=== PATIENT | female | born 1970 | race Caucasian/White ===

== ENCOUNTER 2019-11-09 13:25 | Outpatient (CLI) | payer MEDICARE, MEDICAID, SELFPAY | END 2019-11-09 13:26 | disposition home or self-care (01) | PROVIDERS: Family Provider Family Medicine; Visit Provider Internal Medicine Critical Care Medicine | DX: J44.1 Chronic obstructive pulmonary disease with (acute) exacerbation (principal); F17.210 Nicotine dependence, cigarettes, uncomplicated | CPT/HCPCS: 94010; 94726; 94729 ==

== ENCOUNTER 2019-12-17 10:57 | Outpatient (CLI) | payer MEDICARE, MEDICAID, SELFPAY ==
[2019-12-17 11:28] LABS: Basophils # 0.1 10^3/uL (0.0-0.1); Basophils % 0.7 %; Eosinophils # 0.2 10^3/uL (0.0-0.8); Eosinophils % 2.7 %; Hematocrit 51.4 % (37.0-47.0); Hemoglobin 17.4 g/dL (11.5-15.3); Lymphocytes # 2.4 10^3/uL (0.8-4.8); Lymphocytes % 28.9 %; Mean Corpuscular HGB Conc 33.9 g/dL (30.0-36.0); Mean Corpuscular Hemoglobin 36.2 pg (28.0-34.0); Mean Corpuscular Volume 106.9 fL (81-99); Mean Platelet Volume 10.2 fL (7.4-10.4); Monocytes # 0.7 10^3/uL (0.2-0.9); Neutrophils # 4.8 10^3/uL (1.8-7.7); Neutrophils % 58.5 %; Nucleated Red Blood Cells % 0 %; Platelet Count 318 10^3/cmm (130-400); Red Blood Count 4.81 10^6/uL (4.1-5.3); Red Cell Distribution Width 12.4 % (12.1-15.1); White Blood Count 8.2 10^3/uL (4.0-10.0)
[2019-12-17 11:46] LABS: Ferritin 134 ng/mL (15-150); Iron 114 ug/dL (37-145); Total Iron Binding Capacity 285 mcg/dl; Unsaturated Iron Binding 171 ug/dL (112-347)
== END 2019-12-17 10:58 | disposition home or self-care (01) ==
LOC: ONCMED 11:01
PROVIDERS: Family Provider Family Medicine; PCP Family Medicine; Visit Provider Internal Medicine Medical Oncology
DX: E83.110 Hereditary hemochromatosis (principal)
CPT/HCPCS: 82728; 83540; 83550; 85025; 99195; 99211

== ENCOUNTER 2020-03-19 10:45 | Outpatient (CLI) | payer MEDICARE, MEDICAID, SELFPAY ==
[2020-03-19 11:17] LABS: Basophils # 0.1 10^3/uL (0.0-0.1); Basophils % 1.1 %; Eosinophils # 0.3 10^3/uL (0.0-0.8); Eosinophils % 3.5 %; Hematocrit 49.6 % (37.0-47.0); Hemoglobin 16.9 g/dL (11.5-15.3); Lymphocytes % 27.8 %; Mean Corpuscular HGB Conc 34.1 g/dL (30.0-36.0); Mean Corpuscular Hemoglobin 36.4 pg (28.0-34.0); Mean Corpuscular Volume 106.9 fL (81-99); Mean Platelet Volume 9.8 fL (7.4-10.4); Monocytes # 0.5 10^3/uL (0.2-0.9); Monocytes % 7.5 %; Neutrophils # 4.3 10^3/uL (1.8-7.7); Neutrophils % 59.8 %; Nucleated Red Blood Cells % 0 %; Platelet Count 267 10^3/cmm (130-400); Red Blood Count 4.64 10^6/uL (4.1-5.3); Red Cell Distribution Width 12.9 % (12.1-15.1); White Blood Count 7.2 10^3/uL (4.0-10.0)
[2020-03-19 11:36] LABS: Alanine Aminotransferase 37 U/L (0-33); Albumin Level 3.7 g/dL (3.5-5.2); Alkaline Phosphatase 68 IU/L (35-105); Aspartate Amino Transferase 37 U/L (0-32); Blood Urea Nitrogen 12 mg/dL (6-20); Calcium 9.7 mg/dL (8.5-10.5); Carbon Dioxide 23 mmol/L (22-29); Chloride 104 mmol/L (98-107); Ferritin 110 ng/mL (15-150); Globulin 3.4 g/dL (1.3-4.6); Glomerular Filtration Rate 59.4 mL/min (90-130); Glucose 137 mg/dL (65-115); Iron 63 ug/dL (37-145); Osmolality Calculated 284 mOsm/kg (285-295); Percent Saturation 24.4 % (20-50); Sodium 138 mmol/L (136-145); Total Bilirubin 0.2 mg/dL (0.15-1.2); Total Iron Binding Capacity 258 mcg/dl; Total Protein 7.1 g/dL (6.6-8.7); Unsaturated Iron Binding 195 ug/dL (112-347)
== END 2020-03-19 10:46 | disposition home or self-care (01) ==
LOC: ONCMED 10:48
PROVIDERS: PCP Family Medicine; Visit Provider Internal Medicine Medical Oncology
DX: E83.110 Hereditary hemochromatosis (principal); I10 Essential (primary) hypertension
CPT/HCPCS: 80053; 82728; 83540; 83550; 85025; 99195

== ENCOUNTER 2020-05-21 09:33 | Outpatient (CLI) | payer MEDICARE, MEDICAID, SELFPAY ==
[2020-05-21 10:11] LABS: Basophils # 0.1 10^3/uL (0.0-0.1); Basophils % 0.8 %; Eosinophils # 0.3 10^3/uL (0.0-0.8); Eosinophils % 3.2 %; Hematocrit 51.3 % (37.0-47.0); Hemoglobin 17.3 g/dL (11.5-15.3); Lymphocytes # 2.3 10^3/uL (0.8-4.8); Lymphocytes % 27.2 %; Mean Corpuscular HGB Conc 33.7 g/dL (30.0-36.0); Mean Corpuscular Hemoglobin 35.5 pg (28.0-34.0); Mean Corpuscular Volume 105.1 fL (81-99); Mean Platelet Volume 10.2 fL (7.4-10.4); Monocytes # 0.6 10^3/uL (0.2-0.9); Neutrophils # 5.08 10^3/uL (1.8-7.7); Neutrophils % 61.2 %; Nucleated Red Blood Cells % 0 %; Platelet Count 293 10^3/cmm (130-400); Red Blood Count 4.88 10^6/uL (4.1-5.3); Red Cell Distribution Width 12.5 % (12.1-15.1); White Blood Count 8.3 10^3/uL (4.0-10.0)
== END 2020-05-21 09:34 | disposition home or self-care (01) ==
LOC: ONCMED 09:39
PROVIDERS: PCP Family Medicine; Visit Provider Nurse Practitioner
DX: E83.110 Hereditary hemochromatosis (principal)
CPT/HCPCS: 36415; 85025; 99195

== ENCOUNTER 2020-06-19 10:45 | Outpatient (CLI) | payer MEDICARE, MEDICAID, SELFPAY ==
[2020-06-19 12:26] LABS: Basophils # 0.1 10^3/uL (0.0-0.1); Basophils % 0.9 %; Eosinophils # 0.3 10^3/uL (0.0-0.8); Eosinophils % 3.1 %; Hematocrit 50.1 % (37.0-47.0); Hemoglobin 16.7 g/dL (11.5-15.3); Lymphocytes # 2.4 10^3/uL (0.8-4.8); Lymphocytes % 27.2 %; Mean Corpuscular HGB Conc 33.3 g/dL (30.0-36.0); Mean Corpuscular Hemoglobin 35.4 pg (28.0-34.0); Mean Corpuscular Volume 106.1 fL (81-99); Mean Platelet Volume 11.2 fL (7.4-10.4); Monocytes # 0.7 10^3/uL (0.2-0.9); Monocytes % 7.6 %; Neutrophils # 5.35 10^3/uL (1.8-7.7); Nucleated Red Blood Cells % 0 %; Platelet Count 256 10^3/cmm (130-400); Red Blood Count 4.72 10^6/uL (4.1-5.3); Red Cell Distribution Width 12.8 % (12.1-15.1); White Blood Count 8.8 10^3/uL (4.0-10.0)
[2020-06-19 13:06] LABS: Ferritin 138 ng/mL (15-150); Iron 99 ug/dL (37-145); Percent Saturation 38.5 % (20-50); Total Iron Binding Capacity 257 mcg/dl; Unsaturated Iron Binding 158 ug/dL (112-347)
== END 2020-06-19 10:46 | disposition home or self-care (01) ==
LOC: ONCMED 10:50
PROVIDERS: PCP Family Medicine; Visit Provider Internal Medicine Medical Oncology
DX: E83.110 Hereditary hemochromatosis (principal); I10 Essential (primary) hypertension
CPT/HCPCS: 82728; 83540; 83550; 85025; 99195

== ENCOUNTER 2020-09-22 11:49 | Outpatient (CLI) | payer MEDICARE, MEDICAID, SELFPAY ==
[2020-09-22 12:18] LABS: Basophils # 0.1 10^3/uL (0.0-0.1); Basophils % 0.8 %; Eosinophils # 0.3 10^3/uL (0.0-0.8); Eosinophils % 2.9 %; Hematocrit 51.4 % (37.0-47.0); Hemoglobin 17.1 g/dL (11.5-15.3); Lymphocytes # 2.5 10^3/uL (0.8-4.8); Lymphocytes % 28.2 %; Mean Corpuscular HGB Conc 33.3 g/dL (30.0-36.0); Mean Corpuscular Hemoglobin 34.8 pg (28.0-34.0); Mean Corpuscular Volume 104.7 fL (81-99); Monocytes # 0.7 10^3/uL (0.2-0.9); Monocytes % 8.1 %; Neutrophils # 5.19 10^3/uL (1.8-7.7); Neutrophils % 59.8 %; Nucleated Red Blood Cells % 0 %; Platelet Count 307 10^3/cmm (130-400); Red Blood Count 4.91 10^6/uL (4.1-5.3); Red Cell Distribution Width 13.2 % (12.1-15.1); White Blood Count 8.7 10^3/uL (4.0-10.0)
[2020-09-22 12:42] LABS: Alanine Aminotransferase 52 U/L (0-33); Albumin Level 3.8 g/dL (3.5-5.2); Alkaline Phosphatase 70 IU/L (35-105); Anion Gap 14.7 (5-19); Aspartate Amino Transferase 51 U/L (0-32); Blood Urea Nitrogen 12 mg/dL (6-20); Calcium 9.5 mg/dL (8.5-10.5); Carbon Dioxide 25 mmol/L (22-29); Chloride 102 mmol/L (98-107); Ferritin 103 ng/mL (15-150); Globulin 3.6 g/dL (1.3-4.6); Glomerular Filtration Rate 67.1 mL/min (90-130); Glucose 116 mg/dL (65-115); Iron 55 ug/dL (37-145); Osmolality Calculated 287 mOsm/kg (285-295); Potassium 3.7 mmol/L (3.5-5.1); Sodium 138 mmol/L (136-145); Total Bilirubin 0.2 mg/dL (0.15-1.2); Total Iron Binding Capacity 288 mcg/dl; Total Protein 7.4 g/dL (6.6-8.7); Unsaturated Iron Binding 233 ug/dL (112-347)
--- NOTE | 2020-09-26 12:01 | ONC FU_ITS ---
Dr. Lance Patient Follow-Up Note Patient: Camilla Nicole Unit #: [id number]: 1970 Dicatated By: Lokesh Lance M.D.Date of Visit:Sep 22, 2020 Onc Med Follow-up/Prog Note Chief Complaint: Hemochromatosis. History of Present Illness: This is a 49 year-old woman with hereditary hemochromatosis. The hemochromatosis was initially diagnosed in April 2007. Her serum ferritin was just mildly elevated at 272 ng/mL, but her serum iron studies did show an elevated transferrin saturation at 63%. The HFE gene analysis showed compound heterozygosity for the C282Y mutation and the H63D mutation. At that time, she also had mildly elevated hemoglobin/hematocrit levels and macrocytic red cell indices. Her B12 level was normal. I had seen her initially in October 2007 and at that time she was started on a phlebotomy program. Her ferritin level and transferrin saturation had stabilized in the low normal range with phlebotomies every 2 to 3 months.. Her medical history is otherwise significant for hypertension and hypercholesterolemia. She has had chronic fatigue and chronic pain which was felt to be consistent with fibromyalgia and osteoarthritis. She is disabled as result of a previous injury to the right knee. She also has a history of migraine headaches. INTERIM HISTORY: Following her visit in August 2016 she was placed on a more frequent phlebotomy schedule, up to monthly, but I think it was mainly due to her elevated hemoglobin/hematocrit levels. She has, though, been previously evaluated with JAK2 gene mutation studies, which were negative. As such, I had not been using her hemoglobin/hematocrit levels as criteria for phlebotomies, and following her visit in August 2018 I decreased the frequency of her phlebotomies to every 4 months. As of her follow-up visit in August 2019 her transferrin saturation and ferritin levels had increased slightly, and the frequency of her phlebotomies was increased to every 3 months. She is seen for a scheduled visit. She has been feeling more tired lately, that she attributes to stress issues. She is still doing light work. ECOG score is 1. Appetite is been okay. Her weight is stable. She does not have fever. She does have some hot flashes and sweating. She has normal cough . She is still smoking 1/2 pack of cigarettes daily. She says her breathing is pretty good. She does not complain of chest pain. She has no GI/ complaints other than frequent urination. She has normal joint issues . She has migraine headaches. She has no focal neurologic symptoms. Medications: Albuterol Sulfate 1 (1.25 mg/3ml) Nebulization solution Inhalation b.i.d. PRN, Aspirin 1 (81 mg) Tablet Oral daily, Atrovent HFA 1 (17 mcg/act) Aerosol, solution Inhalation b.i.d. PRN, hydroCHLOROthiazide 1 Tablet (of 25 mg) Oral daily, Ibuprofen 1 (800 mg) Tablet Oral PRN, Lisinopril 1 Tablet (of 5 mg) Oral daily, Symbicort (160-4.5 mcg/act) Aerosol Inhalation daily, Vicoprofen 1 Tablet (of 7.5-200 mg) Oral PRN, Xanax 1 Tablet (of 1 mg) Oral daily PRN Allergies: adhesive, Codeine Sulfate, Penicillins, and Percocet. Review of Systems: Constitutional - She has been feeling tired, but much of that she attributes to stress factors. She is doing light work. Her appetite is okay. Her weight is stable. She has not had fever. She does have hot flashes and sweating. ECOG score is 1, ENMT - She has year-round sinus drainage. No mouth sores. No sore throat or difficulty swallowing, Hematologic/Lymphatic - No abnormal bruising or bleeding, Respiratory - No shortness of breath. She has normal cough. She is still smoking 1/2 pack of cigarettes daily. No pleuritic pain or hemoptysis, Cardiovascular - No angina pain. No palpitations, Gastrointestinal - No nausea or vomiting. No heartburn or acid reflux. No diarrhea or constipation. No blood in the stool or black stools, Genitourinary (F) - No dysuria or hematuria. She has urinary frequency. No urgency or incontinence, Musculoskeletal - She has normal joint issues , Integumentary - No skin rash, Neurologic - She has migraine headaches. No dizziness. No numbness or tingling. No other focal neurologic symptoms, Psychiatric - She has anxiety. No depression. She has insomnia. Vital Signs: Performed on Sep 22, 2020 13:29 Height - 70.00 in Weight - 374.2 lbs BSA - 2.72 sq.m BMI - 53.69 (HIGH) Temperature - 97.5 F (LOW) Pulse - 82 /min Respiration - 18 /min BP - 164/82 mm(hg) (HIGH) O2 Sat - 96 % Pain - 0 Physical Examination: Constitutional - She looks pretty good generally, Eyes - Sclerae nonicteric. Conjunctivae clear, ENMT - No lesions noted in the oral cavity, Hematologic/Lymphatic - No cervical, clavicular, or axillary adenopathy, Respiratory - Lungs are clear with diminished air movement bilaterally, Cardiovascular - Heart thythm is regular. There is no murmur, gallop, or rub noted, Abdomen - Moderately distended. Liver and spleen are not enlarged. There is no abdominal mass or ascites noted and there is no inguinal adenopathy, Extremities - No edema, Neurologic - No focal neurologic deficits noted. Lab/Imaging: Test performed on Sep 22, 2020 12:01 Ferritin 103 ng/mL Iron 55 mcg/dL Sodium 138 mmol/L Iron Binding Capacity (TIBC) 288 mcg/dl Potassium 3.7 mmol/L % Iron Saturation 19.0 % Chloride 102 mmol/L CO2 25 mmol/L UIBC 233 mcg/dL Anion Gap 14.7 BUN 12 mg/dL Creatinine 0.9 mg/dL Cr Clearance (Est) 207.0600 mL/min eGFR 67.1 mL/min Glucose 116 mg/dL Osmolality - Calculated 287 mOsm/kg Calcium 9.5 mg/dL Protein, Total 7.4 g/dL Albumin 3.8 g/dL Globulin 3.6 g/dL Bilirubin, Total 0.2 mg/dL ALT (SGPT) 52 U/L AST (SGOT) 51 U/L Alkaline Phosphatase 70 IU/L WBC 8.7 10 3/uL RBC 4.91 10 6/uL HGB 17.1 g/dL HCT 51.4 % MCV 104.7 fL MCH 34.8 pg MCHC 33.3 g/dL RDW 13.2 % Platelet Count 307 10 3/cmm MPV 10.0 fL Neutrophils 5.19 10 3/uL Lymphocytes 2.5 10 3/uL Monocytes 0.7 10 3/uL Eosinophils 0.3 10 3/uL Basophils 0.1 10 3/uL Neutrophil % 59.8 % Lymphocyte % 28.2 % Monocyte % 8.1 % Eosinophil % 2.9 % Basophils % 0.8 % NRBC % 0 % Impression: 1. Patient has hereditary hemochromatosis with her HFE gene analysis confirming double heterozygosity for the C282Y and the H63D mutations. She has maintained serum transferrin saturation and ferritin levels in the low normal range on a phlebotomy program. 2. She has mildly elevated hemoglobin/hematocrit levels. Etiology is uncertain. It may just be due to decreased plasma volume. She was found to be negative for the JAK2 V617F and the JAK2 exon 12 mutations. Her other medical illnesses include: 3. Hypertension. 4. Hyperlipidemia. 5. She has had chronic fatigue and chronic pain consistent with fibromyalgia syndrome. During follow-up she has continued to have mildly elevated hemoglobin/hematocrit levels. Her overall clinical status has been stable. Her transferrin saturation now is slightly low at 19%, but with ferritin at 103 ng/mL. Plan: For now she will continue phlebotomies every 3 months. She was scheduled for a follow-up visit in 1 year. Signed By: Lokesh Lance M.D. <<Signature on File>>
== END 2020-09-22 11:50 | disposition home or self-care (01) ==
LOC: ONCMED 11:52
PROVIDERS: PCP Family Medicine; Visit Provider Internal Medicine Medical Oncology
DX: E83.110 Hereditary hemochromatosis (principal); D58.2 Other hemoglobinopathies; I10 Essential (primary) hypertension; E78.5 Hyperlipidemia, unspecified; G89.29 Other chronic pain; R53.82 Chronic fatigue, unspecified; F17.210 Nicotine dependence, cigarettes, uncomplicated
CPT/HCPCS: 36415; 80053; 82728; 83540; 83550; 85025; 99195; 99214

== ENCOUNTER 2020-12-18 08:53 | Outpatient (CLI) | payer MEDICARE, MEDICAID, SELFPAY ==
[2020-12-18 09:25] LABS: Basophils # 0.1 10^3/uL (0.0-0.1); Eosinophils # 0.4 10^3/uL (0.0-0.8); Eosinophils % 4.3 %; Hematocrit 51.2 % (37.0-47.0); Hemoglobin 17.2 g/dL (11.5-15.3); Lymphocytes # 2.2 10^3/uL (0.8-4.8); Lymphocytes % 25.1 %; Mean Corpuscular HGB Conc 33.6 g/dL (30.0-36.0); Mean Corpuscular Hemoglobin 35.5 pg (28.0-34.0); Mean Corpuscular Volume 105.8 fL (81-99); Monocytes # 0.9 10^3/uL (0.2-0.9); Monocytes % 9.8 %; Neutrophils # 5.14 10^3/uL (1.8-7.7); Neutrophils % 59.3 %; Nucleated Red Blood Cells % 0 %; Platelet Count 275 10^3/cmm (130-400); Red Blood Count 4.84 10^6/uL (4.1-5.3); Red Cell Distribution Width 13.1 % (12.1-15.1); White Blood Count 8.7 10^3/uL (4.0-10.0)
== END 2020-12-18 08:54 | disposition home or self-care (01) ==
LOC: ONCMED 08:56
PROVIDERS: PCP Family Medicine; Visit Provider Internal Medicine Medical Oncology
DX: E83.110 Hereditary hemochromatosis (principal)
CPT/HCPCS: 36415; 85025; 99195

== ENCOUNTER 2021-03-19 09:00 | Outpatient (CLI) | payer MEDICARE, MEDICAID, SELFPAY ==
[2021-03-19 09:58] LABS: Basophils # 0.1 10^3/uL (0.0-0.1); Eosinophils # 0.4 10^3/uL (0.0-0.8); Eosinophils % 4.8 %; Hematocrit 47.9 % (37.0-47.0); Hemoglobin 16.5 g/dL (11.5-15.3); Lymphocytes # 2.1 10^3/uL (0.8-4.8); Lymphocytes % 25.5 %; Mean Corpuscular HGB Conc 34.4 g/dL (30.0-36.0); Mean Corpuscular Hemoglobin 36.2 pg (28.0-34.0); Mean Platelet Volume 10.3 fL (7.4-10.4); Monocytes # 0.7 10^3/uL (0.2-0.9); Monocytes % 8.3 %; Neutrophils # 4.91 10^3/uL (1.8-7.7); Neutrophils % 60.3 %; Nucleated Red Blood Cells % 0 %; Platelet Count 254 10^3/cmm (130-400); Red Blood Count 4.56 10^6/uL (4.1-5.3); Red Cell Distribution Width 13.2 % (12.1-15.1); White Blood Count 8.2 10^3/uL (4.0-10.0)
[2021-03-19 10:33] LABS: Ferritin 87 ng/mL (15-150); Iron 97 ug/dL (37-145); Percent Saturation 36.6 % (20-50); Total Iron Binding Capacity 265 mcg/dl; Unsaturated Iron Binding 168 ug/dL (112-347)
== END 2021-03-19 09:01 | disposition home or self-care (01) ==
PROVIDERS: PCP Family Medicine; Visit Provider Internal Medicine Medical Oncology
DX: E83.111 Hemochromatosis due to repeated red blood cell transfusions (principal)
CPT/HCPCS: 36415; 82728; 83540; 83550; 85025; 99195

== ENCOUNTER 2021-06-18 08:58 | Outpatient (CLI) | payer MEDICARE, MEDICAID, SELFPAY ==
[2021-06-18 09:52] LABS: Basophils # 0.1 10^3/uL (0.0-0.1); Basophils % 1.1 %; Eosinophils # 0.4 10^3/uL (0.0-0.8); Eosinophils % 4.3 %; Hematocrit 48.7 % (37.0-47.0); Hemoglobin 16.4 g/dL (11.5-15.3); Lymphocytes # 2.2 10^3/uL (0.8-4.8); Lymphocytes % 25.8 %; Mean Corpuscular HGB Conc 33.7 g/dL (30.0-36.0); Mean Corpuscular Hemoglobin 35.5 pg (28.0-34.0); Mean Corpuscular Volume 105.4 fl (81-99); Mean Platelet Volume 10.7 fL (7.4-10.4); Monocytes # 0.5 10^3/uL (0.2-0.9); Monocytes % 6.5 %; Neutrophils # 5.17 10^3/uL (1.8-7.7); Neutrophils % 62.1 %; Nucleated Red Blood Cells % 0 %; Platelet Count 282 10^3/cmm (130-400); Red Blood Count 4.62 10^6/uL (4.1-5.3); Red Cell Distribution Width 13.4 % (12.1-15.1); White Blood Count 8.3 10^3/uL (4.0-10.0)
== END 2021-06-18 08:59 | disposition home or self-care (01) ==
LOC: ONCMED 09:02
PROVIDERS: PCP Family Medicine; Visit Provider Internal Medicine Medical Oncology
DX: E83.110 Hereditary hemochromatosis (principal); E78.5 Hyperlipidemia, unspecified; I10 Essential (primary) hypertension; Z79.899 Other long term (current) drug therapy
CPT/HCPCS: 36415; 85025; 99195

== ENCOUNTER 2021-11-16 11:44 | Outpatient (CLI) | payer MEDICARE, MEDICAID, SELFPAY ==
[2021-11-16 12:20] LABS: Basophils # 0.1 10^3/uL (0.0-0.1); Basophils % 0.8 %; Eosinophils # 0.5 10^3/uL (0.0-0.8); Eosinophils % 4.4 %; Hematocrit 50.1 % (37.0-47.0); Hemoglobin 17.1 g/dL (11.5-15.3); Lymphocytes # 2.7 10^3/uL (0.8-4.8); Lymphocytes % 26.9 %; Mean Corpuscular HGB Conc 34.1 g/dL (30.0-36.0); Mean Corpuscular Hemoglobin 35.2 pg (28.0-34.0); Mean Corpuscular Volume 103.1 fl (81-99); Mean Platelet Volume 10.1 fL (7.4-10.4); Monocytes # 0.9 10^3/uL (0.2-0.9); Monocytes % 9.1 %; Neutrophils # 5.91 10^3/uL (1.8-7.7); Neutrophils % 58.4 %; Nucleated Red Blood Cells % 0 %; Platelet Count 279 10^3/cmm (130-400); Red Blood Count 4.86 10^6/uL (4.1-5.3); Red Cell Distribution Width 13.3 % (12.1-15.1); White Blood Count 10.1 10^3/uL (4.0-10.0)
[2021-11-16 12:55] LABS: Albumin Level 3.8 g/dL (3.5-5.2); Alkaline Phosphatase 98 IU/L (35-105); Blood Urea Nitrogen 13 mg/dL (6-20); Calcium 9.8 mg/dL (8.5-10.5); Carbon Dioxide 21 mmol/L (22-29); Chloride 102 mmol/L (98-107); Ferritin 148 ng/mL (15-150); Globulin 3.5 g/dL (1.3-4.6); Glomerular Filtration Rate 89.3 mL/min (90-130); Glucose 79 mg/dL (65-115); Iron 56 ug/dL (37-145); Osmolality Calculated 283 mOsm/kg (285-295); Sodium 137 mmol/L (136-145); Total Bilirubin 0.2 mg/dL (0.15-1.2); Total Protein 7.3 g/dL (6.6-8.7)
[2021-11-16 13:01] LABS: Alanine Aminotransferase 43 U/L (0-33); Anion Gap 18.5 (5-19); Aspartate Amino Transferase 47 U/L (0-32); Percent Saturation 17.9 % (20-50); Potassium 4.5 mmol/L (3.5-5.1); Total Iron Binding Capacity 312 mcg/dl; Unsaturated Iron Binding 256 ug/dL (112-347)
--- NOTE | 2021-11-20 09:22 | ONC FU_ITS ---
Dr. Lance Patient Follow-Up Note Patient: Camilla Nicole Unit #: [id number]: 1970 Dicatated By: Lokesh Lance M.D.Date of Visit:Nov 16, 2021 Onc Med Follow-up/Prog Note Chief Complaint: Hemochromatosis. History of Present Illness: This is a 50 year-old woman with hereditary hemochromatosis. The hemochromatosis was initially diagnosed in April 2007. Her serum ferritin was just mildly elevated at 272 ng/mL, but her serum iron studies did show an elevated transferrin saturation at 63%. The HFE gene analysis showed compound heterozygosity for the C282Y mutation and the H63D mutation. At that time, she also had mildly elevated hemoglobin/hematocrit levels and macrocytic red cell indices. Her B12 level was normal. I had seen her initially in October 2007 and at that time she was started on a phlebotomy program. Her ferritin level and transferrin saturation had stabilized in the low normal range with phlebotomies every 2 to 3 months.. Her medical history is otherwise significant for hypertension and hypercholesterolemia. She has had chronic fatigue and chronic pain which was felt to be consistent with fibromyalgia and osteoarthritis. She is disabled as result of a previous injury to the right knee. She also has a history of migraine headaches. INTERIM HISTORY: Following her visit in August 2016 she was placed on a more frequent phlebotomy schedule, up to monthly, but I think it was mainly due to her elevated hemoglobin/hematocrit levels. However, she had been previously evaluated with JAK2 gene mutation studies, which were negative. As such, I had not been using her hemoglobin/hematocrit levels as criteria for phlebotomies, and following her visit in August 2018 the frequency of her phlebotomies to every 4 months, but subsequently increased to every 3 months. Since April 2019 her ferritin level has been fairly stable, ranging between 87 and 138 ng/mL. During that same time period the transferrin saturation has ranged between 19.0 and 47.2%. She is seen for a scheduled visit. She complains that she has no energy, but she still does her normal housework. ECOG score is 1. Her appetite comes and goes. She has not had fever. She has been having hot flashes and mood swings, and she says she is menopausal now. She also complains of having itchy dry skin. She always has sinus drainage. She has a smoker's cough. She says her breathing is normal. She does not complain of chest pain. She has no GI complaints other than occasional heartburn. Her bladder is overactive. She still has some menstruation. She has been having pain in her right foot associated with a bone spur. She otherwise just has her normal every day aches and pains. She does not complain of headache, and she has no focal neurologic symptoms. Medications: Albuterol Sulfate 1 (1.25 mg/3ml) Nebulization solution Inhalation b.i.d. PRN, Aspirin 1 (81 mg) Tablet Oral daily, Atrovent HFA 1 (17 mcg/act) Aerosol, solution Inhalation b.i.d. PRN, hydroCHLOROthiazide 1 Tablet (of 25 mg) Oral daily, Ibuprofen 1 (800 mg) Tablet Oral PRN, Lisinopril 1 Tablet (of 5 mg) Oral daily, Symbicort (160-4.5 mcg/act) Aerosol Inhalation daily, Vicoprofen 1 Tablet (of 7.5-200 mg) Oral PRN, Xanax 1 Tablet (of 1 mg) Oral daily PRN Allergies: adhesive, Codeine Sulfate, Penicillins, and Percocet. Vital Signs: Performed on Nov 16, 2021 13:38 Height - 70.00 in Weight - 357.6 lbs (LOW) BSA - 2.67 sq.m BMI - 51.31 (HIGH) Temperature - 97.7 F (LOW) Pulse - 81 /min Respiration - 16 /min BP - 139/81 mm(hg) O2 Sat - 95 % (LOW) Pain - 9 Fatigue - 7 Physical Examination: Constitutional - She looks pretty good generally, Eyes - Sclerae nonicteric. Conjunctivae clear, ENMT - No lesions noted in the oral cavity, Hematologic/Lymphatic - No cervical, clavicular, or axillary adenopathy, Respiratory - Lungs sound clear, Cardiovascular - Heart thythm is regular. There is no murmur, gallop, or rub noted, Abdomen - Moderately distended. Liver and spleen are not enlarged. There is no abdominal mass or ascites noted and there is no inguinal adenopathy, Extremities - No edema, Neurologic - No focal neurologic deficits noted. Lab/Imaging: Test performed on Nov 16, 2021 12:10 Ferritin 148 ng/mL Iron 56 mcg/dL Sodium 137 mmol/L Iron Binding Capacity (TIBC) 312 mcg/dl Potassium 4.5 mmol/L % Iron Saturation 17.9 % Chloride 102 mmol/L CO2 21 mmol/L UIBC 256 mcg/dL Anion Gap 18.5 BUN 13 mg/dL Creatinine 0.7 mg/dL Cr Clearance (Est) 251.68 mL/min eGFR 89.3 mL/min Glucose 79 mg/dL Osmolality - Calculated 283 mOsm/kg Calcium 9.8 mg/dL Protein, Total 7.3 g/dL Albumin 3.8 g/dL Globulin 3.5 g/dL Bilirubin, Total 0.2 mg/dL ALT (SGPT) 43 U/L AST (SGOT) 47 U/L Alkaline Phosphatase 98 IU/L WBC 10.1 10 3/uL RBC 4.86 10 6/uL HGB 17.1 g/dL HCT 50.1 % MCV 103.1 fl MCH 35.2 pg MCHC 34.1 g/dL RDW 13.3 % Platelet Count 279 10 3/cmm MPV 10.1 fL Neutrophils 5.91 10 3/uL Lymphocytes 2.7 10 3/uL Monocytes 0.9 10 3/uL Eosinophils 0.5 10 3/uL Basophils 0.1 10 3/uL Neutrophil % 58.4 % Lymphocyte % 26.9 % Monocyte % 9.1 % Eosinophil % 4.4 % Basophils % 0.8 % NRBC % 0 % Problem List: 1. Hereditary hemochromatosis. 2. Elevated hemoglobin/hematocrit levels. 3. Hypertension. 4. Hyperlipidemia. 5. She has had chronic fatigue and chronic pain consistent with fibromyalgia syndrome. Problems Addressed with this Encounter and Plan: 1. Patient has hereditary hemochromatosis with her HFE gene analysis confirming double heterozygosity for the C282Y and the H63D mutations. She has been on a phlebotomy program with her ferritin levels ranging from a little above to a little below 100 ng/mL and with her transferrin saturation and the normal range or slightly low. With her current ferritin level slightly higher at 148 ng/mL, she will continue phlebotomies every 3 months. Blood counts and iron studies also will be checked at 3-month intervals. She will be scheduled for a follow-up visit in 1 year. 2. She has mildly elevated hemoglobin/hematocrit levels. Etiology is uncertain. It may just be due to decreased plasma volume. She was found to be negative for the JAK2 V617F and the JAK2 exon 12 mutations. It is being followed expectantly. 3. She has slightly elevated liver enzymes. This will require ongoing monitoring, but it is very unlikely that it would be due to the hemochromatosis. Signed By: Lokesh Lance M.D. <<Signature on File>>
== END 2021-11-16 11:45 | disposition home or self-care (01) ==
LOC: ONCMED 11:49
PROVIDERS: PCP Family Medicine; Visit Provider Internal Medicine Medical Oncology
DX: E83.110 Hereditary hemochromatosis (principal); I10 Essential (primary) hypertension; E78.5 Hyperlipidemia, unspecified; R53.82 Chronic fatigue, unspecified; G89.29 Other chronic pain; R79.89 Other specified abnormal findings of blood chemistry
CPT/HCPCS: 36415; 80053; 82728; 83540; 83550; 85025; 99195; 99214

== ENCOUNTER → 2021-11-18 10:49 | Outpatient (BNVA) | payer MEDICARE, MEDICAID, SELFPAY | PROVIDERS: PCP Family Medicine; Visit Provider Podiatrist Foot & Ankle Surgery | DX: M79.671 Pain in right foot (principal) | CPT/HCPCS: 73630 ==

== ENCOUNTER → 2022-02-15 08:16 | Outpatient (BNVA) | payer MEDICARE, MEDICAID, SELFPAY | PROVIDERS: PCP Family Medicine; Visit Provider Podiatrist Foot & Ankle Surgery | DX: M72.2 Plantar fascial fibromatosis (principal); M65.28 Calcific tendinitis, other site; L60.3 Nail dystrophy; M19.079 Primary osteoarthritis, unspecified ankle and foot | CPT/HCPCS: 99213; 99214 ==

== ENCOUNTER 2022-02-15 10:16 | Outpatient (CLI) | payer MEDICARE, MEDICAID, SELFPAY ==
[2022-02-15 10:41] LABS: Basophils # 0.1 10^3/uL (0.0-0.1); Basophils % 0.8 %; Eosinophils # 0.4 10^3/uL (0.0-0.8); Eosinophils % 3.7 %; Hemoglobin 17.7 g/dL (11.5-15.3); Lymphocytes # 2.5 10^3/uL (0.8-4.8); Lymphocytes % 26.4 %; Mean Corpuscular HGB Conc 34.7 g/dL (30.0-36.0); Mean Corpuscular Hemoglobin 35.8 pg (28.0-34.0); Mean Corpuscular Volume 103.2 fl (81-99); Mean Platelet Volume 10.1 fL (7.4-10.4); Monocytes # 0.6 10^3/uL (0.2-0.9); Monocytes % 6.6 %; Neutrophils # 5.85 10^3/uL (1.8-7.7); Neutrophils % 62.1 %; Nucleated Red Blood Cells % 0 %; Platelet Count 285 10^3/cmm (130-400); Red Blood Count 4.94 10^6/uL (4.1-5.3); Red Cell Distribution Width 12.9 % (12.1-15.1); White Blood Count 9.4 10^3/uL (4.0-10.0)
[2022-02-15 11:04] LABS: Ferritin 100 ng/mL (15-150); Iron 102 ug/dL (37-145); Percent Saturation 38.4 % (20-50); Total Iron Binding Capacity 265 mcg/dl; Unsaturated Iron Binding 163 ug/dL (112-347)
== END 2022-02-15 10:17 | disposition home or self-care (01) ==
PROVIDERS: PCP Family Medicine; Visit Provider Internal Medicine Medical Oncology
DX: E83.110 Hereditary hemochromatosis (principal); I10 Essential (primary) hypertension
CPT/HCPCS: 36415; 82728; 83540; 83550; 85025

== ENCOUNTER 2022-05-19 09:41 | Oncology outpatient (recurring) (ONCR) | payer MEDICARE, MEDICAID, SELFPAY ==
[2022-05-19 10:13] LABS: Basophils # 0.1 10^3/uL (0.0-0.1); Basophils % 1.1 %; Eosinophils # 0.4 10^3/uL (0.0-0.8); Hemoglobin 17.4 g/dL (11.5-15.3); Lymphocytes # 2.8 10^3/uL (0.8-4.8); Mean Corpuscular HGB Conc 34.1 g/dL (30.0-36.0); Mean Corpuscular Hemoglobin 36.1 pg (28.0-34.0); Mean Corpuscular Volume 105.8 fl (81-99); Mean Platelet Volume 10.2 fL (7.4-10.4); Monocytes # 0.9 10^3/uL (0.2-0.9); Monocytes % 8.9 %; Neutrophils % 57.8 %; Nucleated Red Blood Cells % 0 %; Platelet Count 291 10^3/cmm (130-400); Red Blood Count 4.82 10^6/uL (4.1-5.3); Red Cell Distribution Width 13.2 % (12.1-15.1); White Blood Count 9.9 10^3/uL (4.0-10.0)
[2022-05-19 10:26] LABS: Alanine Aminotransferase 35 U/L (0-33); Albumin Level 3.9 g/dL (3.5-5.2); Alkaline Phosphatase 71 IU/L (35-105); Anion Gap 14.2 (5-19); Aspartate Amino Transferase 39 U/L (0-32); Blood Urea Nitrogen 16 mg/dL (6-20); Calcium 9.5 mg/dL (8.5-10.5); Carbon Dioxide 25 mmol/L (22-29); Chloride 103 mmol/L (98-107); Globulin 3.6 g/dL (1.3-4.6); Glomerular Filtration Rate 58.9 mL/min (90-130); Glucose 81 mg/dL (65-115); Osmolality Calculated 286 mOsm/kg (285-295); Potassium 4.2 mmol/L (3.5-5.1); Sodium 138 mmol/L (136-145); Total Bilirubin 0.2 mg/dL (0.15-1.2); Total Protein 7.5 g/dL (6.6-8.7)
[2022-05-19 11:54] LABS: Ferritin 78 ng/mL (15-150); Iron 59 ug/dL (37-145); Percent Saturation 20.2 % (20-50); Total Iron Binding Capacity 291 mcg/dl; Unsaturated Iron Binding 232 ug/dL (112-347)
[2022-05-19 12:30] VITALS: BP 127/78; PULSE 77; TEMP 36.8; O2SAT 97
--- NOTE | 2022-05-19 13:19 | PC.NURSE ---
Addendum entered by Shu Florence RN 05/19/22 13:23: Vital signs entered in error- Correct vitals- Temp 98.2, O2 97%, HR 77, BP 127/78 Original Note: Pt hematocrit is greater than 50. Pts diagnosis is hereditary hemachromatosis. Iron studies not yet back. Spoke with physician, states continue with phlebotomy if pt is agreeable. Pt wanted to have phlebotomy done today. 500mL removed as ordered. Pt tolerated well. Vital signs 98.8, HR 80, O2 97, BP 103/57. -JW
== END 2022-05-23 23:59 | disposition home or self-care (01) ==
PROVIDERS: PCP Family Medicine; Visit Provider Internal Medicine Medical Oncology
DX: E83.110 Hereditary hemochromatosis (principal); M79.671 Pain in right foot; M72.2 Plantar fascial fibromatosis; M65.28 Calcific tendinitis, other site; L60.3 Nail dystrophy; M19.079 Primary osteoarthritis, unspecified ankle and foot
CPT/HCPCS: 36415; 80053; 82728; 83540; 83550; 85025; 99195; 99213; 99214

== ENCOUNTER 2022-08-16 13:52 | Oncology outpatient (recurring) (ONCR) | payer MEDICARE, MEDICAID, SELFPAY ==
[2022-08-16 14:15] LABS: Basophils # 0.1 10^3/uL (0.0-0.1); Basophils % 1.1 %; Eosinophils # 0.5 10^3/uL (0.0-0.8); Eosinophils % 4.6 %; Hematocrit 49.1 % (37.0-47.0); Hemoglobin 17.1 g/dL (11.5-15.3); Lymphocytes # 2.5 10^3/uL (0.8-4.8); Lymphocytes % 25.1 %; Mean Corpuscular HGB Conc 34.8 g/dL (30.0-36.0); Mean Corpuscular Hemoglobin 36.1 pg (28.0-34.0); Mean Corpuscular Volume 103.6 fl (81-99); Mean Platelet Volume 10.1 fL (7.4-10.4); Monocytes # 0.7 10^3/uL (0.2-0.9); Monocytes % 6.9 %; Neutrophils % 62.1 %; Nucleated Red Blood Cells % 0 %; Platelet Count 311 10^3/cmm (130-400); Red Blood Count 4.74 10^6/uL (4.1-5.3); Red Cell Distribution Width 12.9 % (12.1-15.1); White Blood Count 9.8 10^3/uL (4.0-10.0)
[2022-08-16 14:37] LABS: Ferritin 86 ng/mL (15-150); Iron 86 ug/dL (37-145); Percent Saturation 30.8 % (20-50); Total Iron Binding Capacity 279 mcg/dl; Unsaturated Iron Binding 193 ug/dL (112-347)
[2022-08-16 15:10] VITALS: BP 113/67; PULSE 67; TEMP 36.6; O2SAT 95
== END 2022-08-23 23:59 | disposition home or self-care (01) ==
PROVIDERS: PCP Family Medicine; Visit Provider Internal Medicine Medical Oncology
DX: E83.110 Hereditary hemochromatosis (principal)
CPT/HCPCS: 36415; 82728; 83540; 83550; 85025; 99195; 99214

== ENCOUNTER 2022-11-15 11:49 | Oncology outpatient (recurring) (ONCR) | payer MEDICARE, MEDICAID, SELFPAY ==
[2022-11-15 12:19] LABS: Basophils # 0.1 10^3/uL (0.0-0.1); Basophils % 0.9 %; Eosinophils # 0.4 10^3/uL (0.0-0.8); Eosinophils % 3.7 %; Lymphocytes % 27.8 %; Mean Corpuscular HGB Conc 34.6 g/dL (30.0-36.0); Mean Corpuscular Hemoglobin 35.9 pg (28.0-34.0); Mean Corpuscular Volume 103.8 fl (81-99); Monocytes # 0.9 10^3/uL (0.2-0.9); Monocytes % 8.2 %; Neutrophils # 6.37 10^3/uL (1.8-7.7); Nucleated Red Blood Cells % 0 %; Platelet Count 328 10^3/cmm (130-400); Red Blood Count 5.01 10^6/uL (4.1-5.3); Red Cell Distribution Width 12.8 % (12.1-15.1); White Blood Count 10.8 10^3/uL (4.0-10.0)
[2022-11-15 12:48] LABS: Alanine Aminotransferase 26 U/L (0-33); Albumin Level 4.3 g/dL (3.5-5.2); Alkaline Phosphatase 75 U/L (35-105); Aspartate Amino Transferase 27 U/L (0-32); Blood Urea Nitrogen 15 mg/dL (6-20); Calcium 9.5 mg/dL (8.5-10.5); Carbon Dioxide 24 mmol/L (22-29); Chloride 99 mmol/L (98-107); Globulin 3.8 g/dL (1.3-4.6); Glomerular Filtration Rate 66.5 mL/min (90-130); Glucose 95 mg/dL (65-115); Osmolality Calculated 279 mOsm/kg (285-295); Sodium 134 mmol/L (136-145); Total Bilirubin 0.4 mg/dL (0.15-1.2); Total Protein 8.1 g/dL (6.6-8.7)
[2022-11-15 13:07] LABS: Ferritin 106 ng/mL (15-150); Iron 94 ug/dL (37-145); Percent Saturation 29.7 % (20-50); Total Iron Binding Capacity 316 mcg/dl; Unsaturated Iron Binding 222 ug/dL (112-347)
[2022-11-15 15:02] VITALS: BP 118/69; PULSE 67; RESP 18; TEMP 36.4; O2SAT 97
== END 2022-11-23 23:59 | disposition home or self-care (01) ==
PROVIDERS: PCP Family Medicine; Visit Provider Internal Medicine Medical Oncology
DX: M72.2 Plantar fascial fibromatosis (principal); M65.271 Calcific tendinitis, right ankle and foot; L60.3 Nail dystrophy; M19.071 Primary osteoarthritis, right ankle and foot; E83.110 Hereditary hemochromatosis
CPT/HCPCS: 36415; 80053; 82728; 83540; 83550; 85025; 99195; 99213

== ENCOUNTER 2022-12-27 12:52 | Oncology outpatient (recurring) (ONCR) | payer MEDICARE, MEDICAID, SELFPAY ==
[2022-12-27 14:13] LABS: Basophils # 0.1 10^3/uL (0.0-0.1); Eosinophils # 0.4 10^3/uL (0.0-0.8); Eosinophils % 4.3 %; Hematocrit 48.8 % (37.0-47.0); Hemoglobin 16.3 g/dL (11.5-15.3); Lymphocytes # 2.7 10^3/uL (0.8-4.8); Lymphocytes % 29.4 %; Mean Corpuscular HGB Conc 33.4 g/dL (30.0-36.0); Mean Corpuscular Volume 104.7 fl (81-99); Mean Platelet Volume 10.3 fL (7.4-10.4); Monocytes # 0.8 10^3/uL (0.2-0.9); Monocytes % 9.1 %; Neutrophils # 5.11 10^3/uL (1.8-7.7); Nucleated Red Blood Cells % 0 %; Platelet Count 314 10^3/cmm (130-400); Red Blood Count 4.66 10^6/uL (4.1-5.3); Red Cell Distribution Width 13.1 % (12.1-15.1); White Blood Count 9.1 10^3/uL (4.0-10.0)
[2022-12-27 14:46] LABS: Alanine Aminotransferase 21 U/L (0-33); Albumin Level 3.8 g/dL (3.5-5.2); Alkaline Phosphatase 69 U/L (35-105); Aspartate Amino Transferase 24 U/L (0-32); Blood Urea Nitrogen 14 mg/dL (6-20); Calcium 9.2 mg/dL (8.5-10.5); Carbon Dioxide 27 mmol/L (22-29); Chloride 101 mmol/L (98-107); Ferritin 51 ng/mL (15-150); Globulin 3.3 g/dL (1.3-4.6); Glomerular Filtration Rate 66.3 mL/min (90-130); Glucose 139 mg/dL (65-115); Iron 87 ug/dL (37-145); Osmolality Calculated 289 mOsm/kg (285-295); Sodium 138 mmol/L (136-145); Total Bilirubin 0.3 mg/dL (0.15-1.2); Total Iron Binding Capacity 310 mcg/dl; Total Protein 7.1 g/dL (6.6-8.7); Unsaturated Iron Binding 223 ug/dL (112-347)
[2022-12-27 14:48] LABS: Anion Gap 13.5 (5-19); Potassium 3.5 mmol/L (3.5-5.1)
== END 2023-01-21 23:59 | disposition home or self-care (01) ==
PROVIDERS: Nurse Practitioner Family; PCP Family Medicine; Visit Provider Internal Medicine Medical Oncology
DX: E83.110 Hereditary hemochromatosis (principal)
CPT/HCPCS: 36415; 80053; 82728; 83540; 83550; 85025; 99213

== ENCOUNTER 2022-12-27 14:52 | Outpatient (CLI) | payer MEDICARE, MEDICAID, SELFPAY ==
--- NOTE | 2022-12-27 15:00 | USCV_ITS ---
Camilla Nicole Age: 52 Gender: F : 1970 Exam Date: 12/27/2022 15:07 Ordering Phys: Samuel Busby DPM Technologist: [place] Exam Location: [facility] [place] Indication: RLE PAIN AND SWELLING HISTORY: Lower extremity swelling. Lower extremity pain. PROCEDURES: Venous duplex imaging was performed in only the right lower extremity. The following venous structures were evaluated: common femoral vein, profunda vein, proximal portion of the greater saphenous vein, superficial femoral vein, and the popliteal vein. In addition, the posterior tibial and peroneal trunk were evaluated. Serial compression, augmentation maneuvers, and spectral Doppler flow evaluation were performed. FINDINGS: No evidence of DVT seen in any vessel visualized at this time. Examination was technically limited due to body habitus. Right GSV and Varicose Veins in medial mid calf in AOI superficial Thrombus seen Pre Salgado given to Nurse Munguia at Doctor's office at 1531 by [employer] CONCLUSIONS Superficial thrombus Right GSV and varicose veins medial mid calf in the area of concern No evidence of right lower extremity DVT. Pre Salgado given to Nurse Munguia at Doctor's office at 1531 by Agricultural Produce [employer] Keaton Sanchez MD (Electronically Signed) Final Date: 27 December 2022 15:47 S
== END 2022-12-27 14:53 | disposition home or self-care (01) ==
LOC: RAD 14:55
PROVIDERS: PCP Family Medicine; Visit Provider Podiatrist Foot & Ankle Surgery
DX: M79.89 Other specified soft tissue disorders (principal); M79.661 Pain in right lower leg; I82.811 Embolism and thrombosis of superficial veins of right lower extremity; I86.8 Varicose veins of other specified sites
CPT/HCPCS: 93971; 99213

== ENCOUNTER 2023-01-24 11:59 | Oncology outpatient (recurring) (ONCR) | payer MEDICARE, MEDICAID, SELFPAY ==
[2023-01-24 12:43] LABS: Basophils # 0.1 10^3/uL (0.0-0.1); Basophils % 0.9 %; Eosinophils # 0.4 10^3/uL (0.0-0.8); Eosinophils % 3.4 %; Hematocrit 50.8 % (37.0-47.0); Hemoglobin 17.5 g/dL (11.5-15.3); Lymphocytes # 2.7 10^3/uL (0.8-4.8); Lymphocytes % 21.9 %; Mean Corpuscular HGB Conc 34.4 g/dL (30.0-36.0); Mean Corpuscular Hemoglobin 36.2 pg (28.0-34.0); Mean Platelet Volume 9.9 fL (7.4-10.4); Monocytes # 0.8 10^3/uL (0.2-0.9); Monocytes % 6.7 %; Neutrophils # 8.12 10^3/uL (1.8-7.7); Neutrophils % 66.9 %; Nucleated Red Blood Cells % 0 %; Platelet Count 317 10^3/cmm (130-400); Red Blood Count 4.84 10^6/uL (4.1-5.3); Red Cell Distribution Width 12.5 % (12.1-15.1); White Blood Count 12.1 10^3/uL (4.0-10.0)
[2023-01-24 12:56] LABS: Ferritin 68 ng/mL (15-150); Iron 109 ug/dL (37-145); Percent Saturation 36.4 % (20-50); Total Iron Binding Capacity 299 mcg/dl; Unsaturated Iron Binding 190 ug/dL (112-347)
== END 2023-02-20 23:59 | disposition home or self-care (01) ==
PROVIDERS: PCP Family Medicine; Visit Provider Internal Medicine Medical Oncology
DX: E83.110 Hereditary hemochromatosis (principal); Z79.899 Other long term (current) drug therapy
CPT/HCPCS: 36415; 82728; 83540; 83550; 85025; 99195

== ENCOUNTER → 2023-02-28 10:19 | Outpatient (BNVA) | payer MEDICARE, MEDICAID, SELFPAY | PROVIDERS: PCP Family Medicine; Visit Provider Podiatrist Foot & Ankle Surgery | DX: M72.2 Plantar fascial fibromatosis (principal); M65.28 Calcific tendinitis, other site; L60.3 Nail dystrophy; I73.9 Peripheral vascular disease, unspecified; M19.071 Primary osteoarthritis, right ankle and foot | CPT/HCPCS: 99213 ==

== ENCOUNTER 2023-05-03 11:02 | Oncology outpatient (recurring) (ONCR) | payer MEDICARE, MEDICAID, SELFPAY ==
[2023-05-03 12:05] LABS: Basophils # 0.1 10^3/uL (0.0-0.1); Basophils % 0.8 %; Eosinophils # 0.4 10^3/uL (0.0-0.8); Eosinophils % 3.6 %; Hematocrit 50.1 % (37.0-47.0); Hemoglobin 17.1 g/dL (11.5-15.3); Lymphocytes # 2.6 10^3/uL (0.8-4.8); Lymphocytes % 25.2 %; Mean Corpuscular HGB Conc 34.1 g/dL (30.0-36.0); Mean Corpuscular Hemoglobin 35.2 pg (28.0-34.0); Mean Corpuscular Volume 103.1 fl (81-99); Mean Platelet Volume 10.3 fL (7.4-10.4); Monocytes # 1.1 10^3/uL (0.2-0.9); Monocytes % 10.4 %; Neutrophils # 6.07 10^3/uL (1.8-7.7); Neutrophils % 59.6 %; Nucleated Red Blood Cells % 0 %; Platelet Count 288 10^3/cmm (130-400); Red Blood Count 4.86 10^6/uL (4.1-5.3); Red Cell Distribution Width 13.3 % (12.1-15.1); White Blood Count 10.2 10^3/uL (4.0-10.0)
[2023-05-03 12:23] LABS: Alanine Aminotransferase 24 U/L (0-33); Albumin Level 3.9 g/dL (3.5-5.2); Alkaline Phosphatase 63 U/L (35-105); Anion Gap 11.8 (5-19); Aspartate Amino Transferase 26 U/L (0-32); Blood Urea Nitrogen 14 mg/dL (6-20); Carbon Dioxide 24 mmol/L (22-29); Chloride 103 mmol/L (98-107); Ferritin 80 ng/mL (15-150); Globulin 3.4 g/dL (1.3-4.6); Glomerular Filtration Rate 66.3 mL/min (90-130); Glucose 76 mg/dL (65-115); Iron 103 ug/dL (37-145); Osmolality Calculated 279 mOsm/kg (285-295); Percent Saturation 37.8 % (20-50); Potassium 3.8 mmol/L (3.5-5.1); Sodium 135 mmol/L (136-145); Total Bilirubin 0.4 mg/dL (0.15-1.2); Total Iron Binding Capacity 272 mcg/dl; Total Protein 7.3 g/dL (6.6-8.7); Unsaturated Iron Binding 169 ug/dL (112-347)
== END 2023-05-23 23:59 | disposition home or self-care (01) ==
PROVIDERS: PCP Family Medicine; Visit Provider Internal Medicine Medical Oncology
DX: E83.110 Hereditary hemochromatosis (principal); Z79.899 Other long term (current) drug therapy
CPT/HCPCS: 36415; 80053; 82728; 83540; 83550; 85025; 99213

== ENCOUNTER 2023-05-31 08:57 | Oncology outpatient (recurring) (ONCR) | payer MEDICARE, MEDICAID, SELFPAY ==
[2023-05-31 09:05] VITALS: BP 103/65; PULSE 74; RESP 18; TEMP 35.8; O2SAT 98
[2023-05-31 09:21] LABS: Basophils # 0.1 10^3/uL (0.0-0.1); Basophils % 1.3 %; Eosinophils # 0.4 10^3/uL (0.0-0.8); Eosinophils % 4.7 %; Hematocrit 48.5 % (37.0-47.0); Hemoglobin 16.4 g/dL (11.5-15.3); Lymphocytes # 2.4 10^3/uL (0.8-4.8); Lymphocytes % 27.4 %; Mean Corpuscular HGB Conc 33.8 g/dL (30.0-36.0); Mean Corpuscular Hemoglobin 35.9 pg (28.0-34.0); Mean Corpuscular Volume 106.1 fl (81-99); Mean Platelet Volume 9.9 fL (7.4-10.4); Monocytes # 0.8 10^3/uL (0.2-0.9); Monocytes % 8.6 %; Neutrophils # 5.01 10^3/uL (1.8-7.7); Neutrophils % 57.5 %; Nucleated Red Blood Cells % 0 %; Platelet Count 259 10^3/cmm (130-400); Red Blood Count 4.57 10^6/uL (4.1-5.3); Red Cell Distribution Width 13.3 % (12.1-15.1); White Blood Count 8.7 10^3/uL (4.0-10.0)
[2023-05-31 09:42] LABS: Ferritin 80 ng/mL (15-150); Iron 70 ug/dL (37-145); Percent Saturation 26.8 % (20-50); Total Iron Binding Capacity 261 mcg/dl; Unsaturated Iron Binding 191 ug/dL (112-347)
== END 2023-06-23 23:59 | disposition home or self-care (01) ==
PROVIDERS: Nurse Practitioner Family; PCP Family Medicine; Visit Provider Internal Medicine Medical Oncology
DX: E83.110 Hereditary hemochromatosis (principal)
CPT/HCPCS: 36415; 82728; 83540; 83550; 85025; 99195

== ENCOUNTER 2023-08-25 11:00 | Oncology outpatient (recurring) (ONCR) | payer MEDICARE, MEDICAID, SELFPAY ==
[2023-08-25 11:45] LABS: Basophils # 0.1 10^3/uL (0.0-0.1); Basophils % 0.9 %; Eosinophils # 0.3 10^3/uL (0.0-0.8); Eosinophils % 3.5 %; Lymphocytes # 2.3 10^3/uL (0.8-4.8); Lymphocytes % 26.6 %; Mean Corpuscular HGB Conc 34.5 g/dL (30-55); Mean Corpuscular Hemoglobin 35.7 pg (27-33); Mean Corpuscular Volume 103.4 fl (85-98); Mean Platelet Volume 9.9 fL (7.4-10.4); Monocytes # 0.7 10^3/uL (0.2-0.9); Neutrophils # 5.13 10^3/uL (1.8-7.7); Neutrophils % 60.8 %; Nucleated Red Blood Cells % 0 %; Platelet Count 268 10^3/cmm (157-399); Red Blood Count 4.93 10^6/uL (3.85-5.65); Red Cell Distribution Width 12.7 % (12.1-15.1); White Blood Count 8.46 10^3/uL (3.29-11.43)
[2023-08-25 12:04] LABS: Alanine Aminotransferase 29 U/L (0-33); Alkaline Phosphatase 71 U/L (35-105); Anion Gap 12.1 (5-19); Aspartate Amino Transferase 41 U/L (0-32); Blood Urea Nitrogen 17 mg/dL (6-20); Calcium 9.4 mg/dL (8.5-10.5); Carbon Dioxide 27 mmol/L (22-29); Chloride 102 mmol/L (98-107); Ferritin 93 ng/mL (15-150); Globulin 3.5 g/dL (1.3-4.6); Glomerular Filtration Rate 58.7 mL/min (90-130); Glucose 107 mg/dL (65-115); Iron 64 ug/dL (37-145); Osmolality Calculated 286 mOsm/kg (285-295); Percent Saturation 23.7 % (20-50); Potassium 4.1 mmol/L (3.5-5.1); Sodium 137 mmol/L (136-145); Total Bilirubin 0.3 mg/dL (0.15-1.2); Total Iron Binding Capacity 269 mcg/dl; Total Protein 7.5 g/dL (6.6-8.7); Unsaturated Iron Binding 205 ug/dL (112-347)
[2023-08-25 14:07] VITALS: BP 138/74; PULSE 73; RESP 18; TEMP 36.1; O2SAT 98
[2023-08-25 15:46] LABS: Vitamin B12 427 pg/mL (232-1245)
== END 2023-09-22 23:59 | disposition home or self-care (01) ==
PROVIDERS: Internal Medicine; PCP Family Medicine; Visit Provider Internal Medicine Medical Oncology
DX: E83.110 Hereditary hemochromatosis (principal); Z79.899 Other long term (current) drug therapy
CPT/HCPCS: 36415; 80053; 82607; 82728; 83540; 83550; 85025; 99195; 99213

== ENCOUNTER 2023-11-28 09:35 | Oncology outpatient (recurring) (ONCR) | payer OTHER, MEDICAID, SELFPAY ==
[2023-11-28 10:39] LABS: Basophils # 0.1 10^3/uL (0.0-0.1); Eosinophils # 0.3 10^3/uL (0.0-0.8); Eosinophils % 3.5 %; Hematocrit 49.3 % (36-47); Lymphocytes # 2.3 10^3/uL (0.8-4.8); Lymphocytes % 24.3 %; Mean Corpuscular HGB Conc 34.5 g/dL (30-55); Mean Corpuscular Hemoglobin 35.9 pg (27-33); Mean Platelet Volume 9.8 fL (7.4-10.4); Monocytes # 0.8 10^3/uL (0.2-0.9); Monocytes % 8.5 %; Neutrophils # 5.86 10^3/uL (1.8-7.7); Neutrophils % 62.4 %; Nucleated Red Blood Cells % 0 %; Platelet Count 256 10^3/cmm (157-399); Red Blood Count 4.74 10^6/uL (3.85-5.65); Red Cell Distribution Width 13.5 % (12.1-15.1); White Blood Count 9.39 10^3/uL (3.29-11.43)
[2023-11-28 11:06] LABS: Alanine Aminotransferase 25 U/L (0-33); Albumin Level 3.8 g/dL (3.5-5.2); Alkaline Phosphatase 74 U/L (35-105); Anion Gap 13.1 (5-19); Aspartate Amino Transferase 26 U/L (0-32); Blood Urea Nitrogen 13 mg/dL (6-20); Calcium 9.1 mg/dL (8.5-10.5); Carbon Dioxide 25 mmol/L (22-29); Chloride 102 mmol/L (98-107); Ferritin 65 ng/mL (15-150); Globulin 3.7 g/dL (1.3-4.6); Glucose 108 mg/dL (65-115); Iron 56 ug/dL (37-145); Osmolality Calculated 283 mOsm/kg (285-295); Potassium 4.1 mmol/L (3.5-5.1); Sodium 136 mmol/L (136-145); Total Bilirubin 0.3 mg/dL (0.15-1.2); Total Iron Binding Capacity 280 mcg/dl; Total Protein 7.5 g/dL (6.6-8.7); Unsaturated Iron Binding 224 ug/dL (112-347)
== END 2023-12-22 23:59 | disposition home or self-care (01) ==
PROVIDERS: Internal Medicine; PCP Family Medicine; Visit Provider Internal Medicine Medical Oncology
DX: E83.110 Hereditary hemochromatosis (principal); Z79.899 Other long term (current) drug therapy
CPT/HCPCS: 36415; 80053; 82728; 82746; 83540; 83550; 85025

== ENCOUNTER 2024-02-27 11:51 | Oncology outpatient (recurring) (ONCR) | payer OTHER, MEDICAID, SELFPAY ==
[2024-02-27 12:09] LABS: Basophils # 0.1 10^3/uL (0.0-0.1); Basophils % 1.1 %; Eosinophils # 0.4 10^3/uL (0.0-0.8); Eosinophils % 3.9 %; Hematocrit 49.8 % (36-47); Lymphocytes # 2.6 10^3/uL (0.8-4.8); Lymphocytes % 29.1 %; Mean Corpuscular HGB Conc 34.5 g/dL (30-55); Mean Corpuscular Hemoglobin 35.9 pg (27-33); Mean Platelet Volume 9.9 fL (7.4-10.4); Monocytes % 10.5 %; Neutrophils # 5.01 10^3/uL (1.8-7.7); Neutrophils % 55.1 %; Nucleated Red Blood Cells % 0 %; Platelet Count 261 10^3/cmm (157-399); Red Blood Count 4.79 10^6/uL (3.85-5.65); Red Cell Distribution Width 13.2 % (12.1-15.1); White Blood Count 9.08 10^3/uL (3.29-11.43)
[2024-02-27 14:41] LABS: Ferritin 47 ng/mL (15-150)
== END 2024-03-23 23:59 | disposition home or self-care (01) ==
LOC: ONCMED 11:52
PROVIDERS: Nurse Practitioner Family; PCP Family Medicine; Visit Provider Internal Medicine Medical Oncology
DX: E83.110 Hereditary hemochromatosis (principal)
CPT/HCPCS: 36415; 82728; 85025

== ENCOUNTER 2024-07-24 11:56 | Oncology outpatient (recurring) (ONCR) | payer OTHER, MEDICAID, SELFPAY ==
[2024-07-24 12:29] LABS: Basophils # 0.1 10^3/uL (0.0-0.1); Basophils % 1.4 %; Eosinophils # 0.4 10^3/uL (0.0-0.8); Eosinophils % 4.6 %; Hematocrit 49.7 % (36-47); Lymphocytes # 2.6 10^3/uL (0.8-4.8); Lymphocytes % 30.6 %; Mean Corpuscular HGB Conc 34.6 g/dL (30-55); Mean Corpuscular Hemoglobin 35.6 pg (27-33); Mean Corpuscular Volume 102.9 fl (85-98); Monocytes # 0.8 10^3/uL (0.2-0.9); Neutrophils # 4.61 10^3/uL (1.8-7.7); Nucleated Red Blood Cells % 0 %; Platelet Count 265 10^3/cmm (157-399); Red Blood Count 4.83 10^6/uL (3.85-5.65); Red Cell Distribution Width 12.5 % (12.1-15.1); White Blood Count 8.53 10^3/uL (3.29-11.43)
[2024-07-24 12:49] LABS: Alanine Aminotransferase 31 U/L (0-33); Albumin Level 3.9 g/dL (3.5-5.2); Alkaline Phosphatase 80 U/L (35-105); Anion Gap 17.4 (5-19); Aspartate Amino Transferase 34 U/L (0-32); Blood Urea Nitrogen 15 mg/dL (6-20); Carbon Dioxide 21 mmol/L (22-29); Chloride 105 mmol/L (98-107); Ferritin 168 ng/mL (15-150); Globulin 3.6 g/dL (1.3-4.6); Glucose 107 mg/dL (65-115); Iron 94 ug/dL (37-145); Osmolality Calculated 289 mOsm/kg (285-295); Percent Saturation 33.8 % (20-50); Potassium 4.4 mmol/L (3.5-5.1); Sodium 139 mmol/L (136-145); Total Bilirubin 0.5 mg/dL (0.15-1.2); Total Iron Binding Capacity 278 mcg/dl; Total Protein 7.5 g/dL (6.6-8.7); Unsaturated Iron Binding 184 ug/dL (112-347)
[2024-07-24 14:45] VITALS: BP 124/78; PULSE 74; RESP 18; TEMP 36.9; O2SAT 96
== END 2024-08-23 23:59 | disposition home or self-care (01) ==
PROVIDERS: Internal Medicine Medical Oncology; PCP Family Medicine; Visit Provider Internal Medicine Hematology & Oncology
DX: E83.110 Hereditary hemochromatosis (principal)
CPT/HCPCS: 80053; 82728; 83540; 83550; 85025; 99195

== ENCOUNTER 2024-11-06 13:05 | Oncology outpatient (recurring) (ONCR) | payer OTHER, MEDICAID, SELFPAY ==
[2024-11-06 14:51] LABS: Basophils # 0.1 10^3/uL (0.0-0.1); Eosinophils # 0.5 10^3/uL (0.0-0.8); Eosinophils % 4.9 %; Hematocrit 51.4 % (36-47); Lymphocytes # 2.7 10^3/uL (0.8-4.8); Lymphocytes % 28.3 %; Mean Corpuscular HGB Conc 34.2 g/dL (30-55); Mean Corpuscular Hemoglobin 35.3 pg (27-33); Mean Corpuscular Volume 103.2 fl (85-98); Monocytes # 0.7 10^3/uL (0.2-0.9); Monocytes % 7.5 %; Neutrophils # 5.53 10^3/uL (1.8-7.7); Nucleated Red Blood Cells % 0 %; Platelet Count 296 10^3/cmm (157-399); Red Blood Count 4.98 10^6/uL (3.85-5.65); Red Cell Distribution Width 12.8 % (12.1-15.1); White Blood Count 9.56 10^3/uL (3.29-11.43)
[2024-11-06 15:10] LABS: Alanine Aminotransferase 46 U/L (0-33); Albumin Level 4.1 g/dL (3.5-5.2); Alkaline Phosphatase 80 U/L (35-105); Anion Gap 12.9 (5-19); Aspartate Amino Transferase 53 U/L (0-32); Blood Urea Nitrogen 17 mg/dL (6-20); Calcium 9.8 mg/dL (8.5-10.5); Carbon Dioxide 26 mmol/L (22-29); Chloride 101 mmol/L (98-107); Ferritin 151 ng/mL (15-150); Glucose 96 mg/dL (65-115); Iron 125 ug/dL (37-145); Osmolality Calculated 283 mOsm/kg (285-295); Percent Saturation 38.9 % (20-50); Potassium 3.9 mmol/L (3.5-5.1); Sodium 136 mmol/L (136-145); Total Bilirubin 0.6 mg/dL (0.15-1.2); Total Iron Binding Capacity 321 mcg/dl; Total Protein 8.1 g/dL (6.6-8.7); Unsaturated Iron Binding 196 ug/dL (112-347)
[2024-11-06 15:44] VITALS: BP 110/72; PULSE 78; RESP 17; TEMP 36.7; O2SAT 98
== END 2024-11-23 23:59 | disposition home or self-care (01) ==
PROVIDERS: Internal Medicine Medical Oncology; PCP Family Medicine; Visit Provider Internal Medicine Medical Oncology
DX: E83.110 Hereditary hemochromatosis (principal); Z79.899 Other long term (current) drug therapy
CPT/HCPCS: 36415; 80053; 82728; 83540; 83550; 85025; 99195

== ENCOUNTER 2025-07-04 12:31 | Oncology outpatient (recurring) (ONCR) | payer MEDICARE, MEDICAID, SELFPAY ==
[2025-07-04 12:56] LABS: Hematocrit 51.8 % (36-47); Hemoglobin 17.80 g/dL (11.27-16.99); Mean Corpuscular HGB Conc 34.4 g/dL (30-55); Mean Corpuscular Hemoglobin 35.7 pg (27-33); Mean Corpuscular Volume 103.8 fl (85-98); Nucleated Red Blood Cells % 0 %; Platelet Count 249 10^3/cmm (157-399); Red Blood Count 4.99 10^6/uL (3.85-5.65); White Blood Count 9.17 10^3/uL (3.29-11.43)
[2025-07-04 13:21] LABS: Alanine Aminotransferase 36 U/L (0-33); Albumin Level 4.0 g/dL (3.5-5.2); Alkaline Phosphatase 80 U/L (35-105); Anion Gap 15.1 (5-19); Aspartate Amino Transferase 48 U/L (0-32); Blood Urea Nitrogen 13 mg/dL (6-20); Calcium 9.7 mg/dL (8.5-10.5); Carbon Dioxide 25 mmol/L (22-29); Chloride 102 mmol/L (98-107); Ferritin 105 ng/mL (15-150); Globulin 3.6 g/dL (1.3-4.6); Glucose 90 mg/dL (65-115); Osmolality Calculated 286 mOsm/kg (285-295); Potassium 4.1 mmol/L (3.5-5.1); Sodium 138 mmol/L (136-145); Total Protein 7.6 g/dL (6.6-8.7)
[2025-07-04 15:14] LABS: Iron 95 ug/dL (37-145); Total Iron Binding Capacity 302 mcg/dl; Unsaturated Iron Binding 207 ug/dL (112-347)
== END 2025-07-23 23:59 | disposition home or self-care (01) ==
PROVIDERS: Nurse Practitioner Family; PCP Family Medicine; Visit Provider Internal Medicine
DX: E83.110 Hereditary hemochromatosis (principal); F17.210 Nicotine dependence, cigarettes, uncomplicated; D75.1 Secondary polycythemia; G47.33 Obstructive sleep apnea (adult) (pediatric); E66.9 Obesity, unspecified; Z68.43 Body mass index [BMI] 50.0-59.9, adult; Z71.6 Tobacco abuse counseling
CPT/HCPCS: 36415; 80053; 82668; 82728; 83540; 83550; 83615; 85025; 86140; 99213

== ENCOUNTER 2025-10-03 12:11 | Oncology outpatient (recurring) (ONCR) | payer MEDICARE, MEDICAID, SELFPAY ==
[2025-10-03 12:53] LABS: Hematocrit 47.2 % (36-47); Hemoglobin 15.50 g/dL (11.27-16.99); Mean Corpuscular HGB Conc 32.8 g/dL (30-55); Mean Corpuscular Hemoglobin 32.7 pg (27-33); Mean Corpuscular Volume 99.6 fl (85-98); Nucleated Red Blood Cells % 0 %; Platelet Count 241 10^3/cmm (157-399); Red Blood Count 4.74 10^6/uL (3.85-5.65); White Blood Count 7.87 10^3/uL (3.29-11.43)
[2025-10-03 13:06] LABS: Alanine Aminotransferase 38 U/L (0-33); Albumin Level 3.8 g/dL (3.5-5.2); Alkaline Phosphatase 83 U/L (35-105); Anion Gap 13.3 (5-19); Aspartate Amino Transferase 46 U/L (0-32); Blood Urea Nitrogen 16 mg/dL (6-20); Calcium 9.4 mg/dL (8.5-10.5); Carbon Dioxide 26 mmol/L (22-29); Chloride 105 mmol/L (98-107); Ferritin 41 ng/mL (15-150); Globulin 3.4 g/dL (1.3-4.6); Glucose 98 mg/dL (65-115); Iron 54 ug/dL (37-145); Osmolality Calculated 291 mOsm/kg (285-295); Potassium 4.3 mmol/L (3.5-5.1); Sodium 140 mmol/L (136-145); Total Iron Binding Capacity 323 mcg/dl; Total Protein 7.2 g/dL (6.6-8.7); Unsaturated Iron Binding 269 ug/dL (112-347)
== END 2025-10-23 23:59 | disposition home or self-care (01) ==
PROVIDERS: Internal Medicine; PCP Family Medicine; Visit Provider Nurse Practitioner
DX: E83.110 Hereditary hemochromatosis (principal); F17.210 Nicotine dependence, cigarettes, uncomplicated; D75.1 Secondary polycythemia; E66.9 Obesity, unspecified; Z68.43 Body mass index [BMI] 50.0-59.9, adult; R74.8 Abnormal levels of other serum enzymes; R74.01 Elevation of levels of liver transaminase levels
CPT/HCPCS: 36415; 80053; 82668; 82728; 83540; 83550; 83615; 85025; 86140; 99213